=== PATIENT | female | born 1975 | race Caucasian/White ===

== ENCOUNTER → 2020-11-03 | Emergency (ER) | payer BC ==
[~2020-11-03] VITALS: Ht 162.6 cm; Wt 59.0 kg
[~2020-11-03] MED LIST: CYCL10TA9 PO; CYCLOBENZAPRINE 10 MG TABLET ONE; CYCLOBENZAPRINE 10 MG TABLET PO ONE; DEXAMETHASONE SOD PHOSPHATE 4 MG/ML VIAL IM ONE; DEXAMETHASONE SOD PHOSPHATE 4 MG/ML VIAL ONE; KETOROLAC TROMETHAMINE INJ 60 MG/2 ML VIAL IM ONE; NAPR500T6 PO
[2020-11-03 18:09] VITALS: BP 134/84
--- NOTE | 2020-11-03 18:52 | NUR ---
Patient discharged to home in stable condition. Written and verbal after care instructions given. Patient verbalizes understanding of instruction. Pt ambulatory with a steady gait
--- NOTE | 2020-11-03 18:53 | NUR ---
Unable to depart on [employer]. Pt left @ [id number]
== END | disposition home or self-care (01) ==
LOC: ER 19:17
DX: M54.2 Cervicalgia (principal); G89.29 Other chronic pain; F41.9 Anxiety disorder, unspecified; F10.10 Alcohol abuse, uncomplicated; F17.200 Nicotine dependence, unspecified, uncomplicated; Y90.9 Presence of alcohol in blood, level not specified; Z60.2 Problems related to living alone; Z79.899 Other long term (current) drug therapy
CPT/HCPCS: 96372 ×2; 99284; J1100; J1885